=== PATIENT | female | born 1995 ===

== ENCOUNTER 2018-06-14 13:11 | Emergency (ER) | payer SELFPAY ==
[2018-06-14 13:30] VITALS: BP 107/69; PULSE 77; RESP 20; TEMP 98; O2SAT 100
[2018-06-14] MEDS ORDERED: Hydrogen Peroxide 3% Soln (480ml) TP ONE (13:55)
--- NOTE | 2018-06-14 14:15 | ED PDOC ---
HPI: CCC, URI, Sore Throat Time Seen by Provider: 06/14/18 13:40 Chief Complaint (Nursing): ENT Problem Chief Complaint (Provider): Left ear pain History Per: Patient History/Exam Limitations: no limitations Onset/Duration Of Symptoms: Days (x2) Current Symptoms Are (Timing): Still Present Location Of Pain: Ear(s) (left) Ear Symptoms: Left: Ear Pain, Decreased Hearing Additional Complaint(s): Janet Karimi is a 23 year old female, with no significant past medial history, who presents to the emergency department accompanied by mother complaining of left ear pain associated with difficulty hearing onset for x2 days. Patient denies any other medical complaints. PMD: From [facility] Past Medical History Reviewed: Historical Data, Nursing Documentation, Vital Signs Vital Signs: Last Vital Signs Temp 98 F 06/14/18 13:28 Pulse 77 06/14/18 13:28 Resp 20 06/14/18 13:28 BP 107/69 06/14/18 13:28 Pulse Ox 100 06/14/18 14:39 - Medical History PMH: No Chronic Diseases - Surgical History Surgical History: No Surg Hx - Family History Family History: States: Unknown Family Hx - Home Medications Home Medications: Ambulatory Orders Medication Instructions Recorded Carbamide Peroxide [Debrox Ear 5 drop AU BID #1 bottle 06/14/18 Drops] - Allergies Allergies/Adverse Reactions: Allergies Allergy/AdvReac Type Severity Reaction Status Date / Time No Known Allergies Allergy Verified 06/14/18 13:28 Review of Systems ROS Statement: Except As Marked, All Systems Reviewed And Found Negative ENT: Positive for: Ear Pain (left with difficulty hearing) Physical Exam - Reviewed Nursing Documentation Reviewed: Yes Vital Signs Reviewed: Yes - Physical Exam Appears: Positive for: No Acute Distress Head Exam: Positive for: ATRAUMATIC, NORMOCEPHALIC Skin: Positive for: Normal Color, Warm, Dry Eye Exam: Positive for: Normal appearance ENT: Positive for: Other (Right mild soft cerumen, TM intact (-) erythema. Left hard impacted cerumen TM not visualized) Neck: Positive for: Painless ROM Respiratory: Negative for: Respiratory Distress Extremity: Positive for: Normal ROM (upper and lower extremities). Negative for : Deformity, Swelling Neurologic/Psych: Positive for: Alert, Oriented - ECG O2 Sat by Pulse Oximetry: 100 (RA) Pulse Ox Interpretation: Normal Medical Decision Making Medical Decision Making: Time: 13:40 Initial Impression: Left ear pain Initial Plan: 14:25 -On reassessment patient is feeling much better, hearing intact with no further ear pain. Scribe Attestation: Documented by Bob Nguyen, acting as a scribe for Peggy Hathaway PA-C Provider Scribe Attestation: All medical record entries made by the Scribe were at my direction and personally dictated by me. I have reviewed the chart and agree that the record accurately reflects my personal performance of the history, physical exam, medical decision making, and the department course for this patient. I have also personally directed, reviewed, and agree with the discharge instructions and disposition. Disposition - Clinical Impression Clinical Impression: Impacted cerumen of left ear - Patient ED Disposition Is Patient to be Admitted: No Doctor Will See Patient In The: Office - Disposition Referrals: John Hayward MD [Staff Provider] - Disposition: Routine/Home Disposition Time: 14:33 Condition: IMPROVED Prescriptions: Carbamide Peroxide [Debrox Ear Drops] 5 drop AU BID #1 bottle Instructions: Ear Wax Impaction (DC) Forms: [employer] (Italian) Print Language: TAJIK PROCEDURES - Ear Wax Removal Left Ear Result: Re-examined: cerumen removed completely TM Examination: TM(s) intact, normal appearance Ear Canal Exam: atraumatic Patient Tolerated Procedure: well Complications: no problems Technique: ear canal irrigated (w/ hydrogen peroxide and water) Additional comments: Copious amount of cerumen removed. TM now visualized, intact with no perforation.
== END 2018-06-14 14:50 | disposition home or self-care (01) ==
LOC: H.ER 13:11
DX: H61.22 Impacted cerumen, left ear (principal)